=== PATIENT | female | born 1995 | race Caucasian/White ===

== ENCOUNTER → 2019-10-16 11:59 | Outpatient (CLI) | payer OTHER, SELFPAY ==
[2019-10-16 12:37] LABS: Basophils % 0.3 % (0.1-2.0); Eosinophils % 0.4 % (0.1-12.0); Hematocrit 42.7 % (37.0-47.0); Hemoglobin 14.1 g/dL (12.2-16.2); Lymphocytes # 1.6 K/mm3 (0.7-4.5); Lymphocytes % 21.2 % (10-50); Mean Corpuscular Hemoglobin 30.1 pg (27.0-31.2); Mean Platelet Volume 7.1 fl (7.4-10.4); Monocytes # 0.4 K/mm3 (0.1-1.0); Monocytes % 4.6 % (1.7-9.3); Neutrophils # 5.7 K/mm3 (1.8-7.8); Neutrophils % 73.6 % (37.0-80.0); Platelet Count 328 K/mm3 (142-424); Red Cell Distribution Width 12.3 % (11.5-17.5); White Blood Count 7.7 K/mm3 (4.8-10.8)
[2019-10-16 13:33] LABS: Triiodothryronine (T3) Uptake 35 % (23.5-40.5)
[2019-10-16 13:34] LABS: Free Thyroxine Index 3.2 ug/dL (5.93-13.13)
[2019-10-16 13:48] LABS: Thyroid Stimulating Hormone 1.13 uIU/mL (0.465-4.68)
== END ==
PROVIDERS: Visit Provider Nurse Practitioner Obstetrics & Gynecology
DX: R53.83 Other fatigue (principal); N93.9 Abnormal uterine and vaginal bleeding, unspecified
CPT/HCPCS: 36415; 84436; 84443; 84479; 85025

== ENCOUNTER → 2019-11-17 09:17 | Outpatient (CLI) | payer OTHER, SELFPAY ==
--- NOTE | 2019-11-17 09:17 | US_ITS ---
PROCEDURE: US TRANSVAGINAL CLINICAL INDICATION: DUB COMPARISON: No exams were available for comparison FINDINGS: UTERUS: 7.0 x 3.5x 4.3 centimeters with a combined endometrial thickness of 3.4mm. There is no myometrial lesion. There is a small amount of endocervical fluid possibly representing hemorrhage. There is a somewhat heterogeneous appearance of the cervix. Inflammation of the cervix or less likely ill-defined cervical neoplasm could cause this appearance. Correlation with SUPER[employer]OR [employer]IP[employer] exam and Pap smear is recommended. LEFT OVARY: [id number] with a volume of 2.7ml. RIGHT OVARY: 2cmx [id number] with a volume of 1.6ml. No abnormal pelvic mass or fluid collection is apparent. IMPRESSION: Somewhat heterogeneous appearance of the cervix with endocervical fluid. Inflammation of the cervix and/or infiltrative neoplasm could give this appearance. Correlation with SU[employer]IP[employer] exam and Pap smear is recommended. Normal endometrial thickness. Dictated by: Den Webster 11/17/2019 12:18 Electronically signed by Den Webster in [place] 11/17/2019 12:18
== END ==
PROVIDERS: Visit Provider Nurse Practitioner Obstetrics & Gynecology
DX: R10.2 Pelvic and perineal pain (principal)
CPT/HCPCS: 76830

== ENCOUNTER 2020-03-29 00:09 | Emergency (ER) | payer OTHER, SELFPAY ==
[2020-03-29 00:22] VITALS: BP 141/91; PULSE 97; RESP 16; TEMP 37; O2SAT 100; BMI 24.0
[2020-03-29 00:30] VITALS: BP 145/92; PULSE 93; RESP 17; O2SAT 100
[2020-03-29 00:44] LABS: Microscopic, Urine URINE MICROSCOPIC (MICROSCOPIC)
[2020-03-29 00:47] LABS: Bilirubin,Urine Negative (Negative); Blood, Urine 3+ (Negative); Glucose,Urine (UA) Negative (Negative); Ketones,Urine Negative (Negative); Leukocyte Esterase,Urine Negative (Negative); Nitrate,Urine Negative (Negative); Protein,Urine TRACE (Negative); Specific Gravity, Urine >= 1.030 (1.005-1.030); Urobilinogen,Urine 0.2 EU/dl (0.2)
[2020-03-29 00:48] LABS: Appearance,Urine Slightly Cloudy (Clear); Color,Urine Dark Yellow (Yellow)
[2020-03-29 00:48] LABS: Basophils # 0.1 K/mm3 (0-0.2); Basophils % 0.4 % (0.1-2.0); Eosinophils # 0.1 K/mm3 (0.0-0.4); Eosinophils % 0.4 % (0.1-12.0); Hematocrit 39.6 % (37.0-47.0); Hemoglobin 13.7 g/dL (12.2-16.2); Lymphocytes # 3.7 K/mm3 (0.7-4.5); Lymphocytes % 33.3 % (10-50); Mean Corpuscular HGB Conc 34.6 g/dL (31.8-35.4); Mean Corpuscular Volume 89.4 fl (81-99); Mean Platelet Volume 6.8 fl (7.4-10.4); Monocytes # 0.7 K/mm3 (0.1-1.0); Monocytes % 6.2 % (1.7-9.3); Neutrophils # 6.6 K/mm3 (1.8-7.8); Neutrophils % 59.6 % (37.0-80.0); Platelet Count 308 K/mm3 (142-424); Red Blood Count 4.43 M/mm3 (4.20-5.40); Red Cell Distribution Width 12.4 % (11.5-17.5); White Blood Count 11.1 K/mm3 (4.8-10.8)
[2020-03-29 00:49] LABS: Urine Pregnancy, HCG Qual. Negative (Negative)
[2020-03-29 00:51] LABS: Alanine Aminotransferase 12 U/L (12-78); Albumin Level 4.3 g/dl (3.5-5.0); Albumin/Globulin Ratio 1.6 (1.1-1.8); Alkaline Phosphatase 67 U/L (38-126); Amylase 76 U/L (30-110); Aspartate Amino Transferase 25 U/L (14-36); Bilirubin,Total 0.5 mg/dl (0.2-1.3); Blood Urea Nitrogen 11 mg/dl (7-17); Calcium 9.5 mg/dl (8.4-10.2); Carbon Dioxide 27 mmol/L (22.0-30.0); Chloride 102 mmol/L (98-107); Creatinine Clearance Estimated 88 mL/min (50-200); Estimated Glomerular Filt Rate 78 ml/min (>60); GFR (African American) 94 ML/MIN (>60); Globulin 2.7 g/dL (1.3-3.2); Glucose 98 mg/dl (74-100); Lipase 64 U/L (23-300); Sodium 138 mmol/L (136-145)
--- NOTE | 2020-03-29 00:53 | CT_ITS ---
PROCEDURE: CT ABDOMEN PELVIS WO CON CLINICAL INDICATION: right flank pain Right lower quadrant pain, UTI, right flank pain COMPARISON: CT CT ABDOMEN PELVIS WO CON from 06/06/2019 TECHNIQUE: Axial images obtained with sagittal and coronal reformats. All CT scans at the facility use one or more dose reduction, viz: automated exposure control, ma/kV adjustment per patient size (including targeted exams where dose is matched to indication, i.e. head), or iterative reconstruction technique. FINDINGS: LOWER THORAX: No acute finding ABDOMEN & PELVIS: The liver, spleen, adrenal glands, and pancreas have an unremarkable appearance. There is mild right hydronephrosis and hydroureter. Small stones are in both kidneys measuring up to 3 mm in the upper pole on the right and 2 mm in the lower pole on the left. There is a 2 mm right ureterovesical junction stone. No intestinal obstruction or free air. No evidence of appendicitis. The uterus is anteverted and canted toward the right. No acute bony findings. IMPRESSION: 1. Mild right hydronephrosis and hydroureter secondary to 2 mm right ureterovesical junction stone. 2. Bilateral nephrolithiasis Dictated b Dario Alex MD 03/29/2020 05:47 Dario Alex MD in [place] 03/29/2020 05:47
[2020-03-29 01:00] VITALS: BP 135/84; PULSE 74; RESP 18; O2SAT 99
[2020-03-29 01:06] LABS: Bacteria,Urine 1+ /lpf; Mucus,Urine 1+ /lpf; RBC,Urine TNTC #/hpf (0-3)
[2020-03-29 01:08] LABS: C-Reactive Protein 2.4 mg/L (0-4)
[2020-03-29 01:14] LABS: Erythrocyte Sedimentation Rate 12 mm/hr (0-20)
[2020-03-29 01:37] LABS: Anion Gap 12.6 mEq/L (5-15); Potassium 3.6 mmoL/L (3.5-5.1)
--- NOTE | 2020-03-29 01:43 | HMH.EDGENADL ---
ED Disposition Clinical Impression: Renal colic on right side Disposition: Home, Self-Care Condition on Discharge: Good Instructions: DI for Kidney Stones Additional Instructions: fluids and call dr chamberlain this am Prescriptions: Tamsulosin HCl [Flomax 0.4mg capsule] 0.4 mg PO HS #10 cap Transmission Status: Pending to [id number] Referrals: PCP,No [Primary Care Provider] - Aureliano Chamberlain MD [Staff Physician] - - Critical Care Critical Care Time: No Attestation: On 03/29/20, the high probability of a clinically significant, sudden or life threatening deterioration of the following system(s) required my full and direct attention, intervention and personal management. The time I documented below is in addition to time spent performing reported procedures but includes the following listed in this critical care notation. Medical Decision Making - Medical Records Medical records reviewed: Yes: I reviewed the patient's medical records. - Juarez Inquiry Pt receiving controlled substance: No Vital Signs: 03/29/20 00:22 03/29/20 00:30 03/29/20 01:00 Temperature 98.6 F Temperature Source Oral Pulse Rate [Right] 97 H 93 H 74 Respiratory Rate 16 17 18 Blood Pressure [Right Arm] 141/91 H 145/92 H 135/84 Blood Pressure Mean [Right Arm] 107 109 101 Blood Pressure Source [Right Arm] Automatic Cuff Automatic Cuff Automatic Cuff Blood Pressure Position [Right Arm] Sitting Supine Supine 02 Sat by Pulse Oximetry 100 100 99 Oxygen Delivery Method Room Air Room Air Room Air - Lab Data Lab results reviewed: Yes: I reviewed the patient's lab results. Lab Results 03/29/20 00:25: Urine Color Dark yellow, Urine Appearance Slightly cloudy, Urine pH 6.0, Ur Specific [place] >= 1.030, Urine Protein Trace, Urine Glucose (UA) Negative, Urine Ketones Negative, Urine Blood 3+, Urine Nitrate Negative, Urine Bilirubin Negative, Urine Urobilinogen 0.2, Ur Leukocyte Esterase Negative, Urine RBC Tntc, Urine WBC 3-5, Ur Squamous Epith Cells 5-10, Urine Bacteria 1+, Urine Mucus 1+ 03/29/20 00:25: Urine HCG, Qual Negative 03/29/20 00:30: WBC 11.1 H, RBC 4.43, Hgb 13.7, Hct 39.6, MCV 89.4, MCH 31.0, MCHC 34.6, RDW 12.4, Plt Count 308, MPV 6.8 L, Neut % (Auto) 59.6, Lymph % (Auto) 33.3, Iroquois % (Auto) 6.2, Eos % (Auto) 0.4, Baso % (Auto) 0.4, Neut # (Auto) 6.6, Lymph # (Auto) 3.7, [place]quois # (Auto) 0.7, Eos # (Auto) 0.1, Baso # (Auto) 0.1, ESR 12 03/29/20 00:30: Sodium 138, Potassium 3.6, Chloride 102, Carbon Dioxide 27, Anion Gap 12.6, BUN 11, Creatinine 0.90, Estimated Creat Clear 88, Estimated GFR 78, Est GFR ( Amer) 94, Glucose 98, Calcium 9.5, Total Bilirubin 0.5, AST 25, ALT 12, Alkaline Phosphatase 67, C-Reactive Protein 2.4, Total Protein 7.0, Albumin 4.3, Globulin 2.7, Albumin/Globulin Ratio 1.6, Amylase 76, Lipase 64 Result diagrams: 03/29/20 00:30 03/29/20 00:30 Orders (Tests/Meds): ED MEDICATIONS Generic Name Dose Route Start Last Admin Trade Name Freq PRN Reason Stop Dose Admin Sodium Chloride 1,000 mls @ 999 mls/hr 03/29/20 00:45 03/29/20 00:40 Sod Chlor 0.9% 1000ml Bag IV 03/29/20 01:45 999 mls/hr .Q1H1M DHEERAJ Administration Sodium Chloride 8 ml 03/29/20 00:34 Sodium Chloride 0.9% 10ml Vial IV 04/28/20 00:33 NEEDED PRN dilute pepcid Discontinued Medications Generic Name Dose Route Start Last Admin Trade Name Freq PRN Reason Stop Dose Admin Famotidine 20 mg 03/29/20 00:34 03/29/20 00:40 Pepcid 20mg/2ml Vial IV 03/29/20 00:35 20 mg ONCE ONE Administration Ketorolac Tromethamine 30 mg 03/29/20 00:34 03/29/20 00:40 Toradol 30mg/Ml Vial IV 03/29/20 00:35 30 mg ONCE ONE Administration Metoclopramide HCl 10 mg 03/29/20 00:34 03/29/20 00:40 Reglan 10mg/2ml Vial IVP 03/29/20 00:35 10 mg ONCE ONE Administration Ondansetron HCl 4 mg 03/29/20 00:34 03/29/20 00:40 Zofran 4mg/2ml Vial IV 03/29/20 00:35 4 mg ONCE ONE Administ
[2020-03-29 02:13] VITALS: BP 134/78; PULSE 76; RESP 16; TEMP 37; O2SAT 99
== END 2020-03-29 02:16 | disposition home or self-care (01) ==
PROVIDERS: Emergency Provider Emergency Medicine
DX: N23 Unspecified renal colic (principal); Z87.442 Personal history of urinary calculi; F17.210 Nicotine dependence, cigarettes, uncomplicated
CPT/HCPCS: 74176; 80053; 81001; 81025; 82150; 83690; 85025; 85651; 86140; 96365; 96375; 99284; J2405

== ENCOUNTER 2020-05-25 13:27 | Emergency (ER) | payer OTHER, SELFPAY ==
[2020-05-25 13:45] VITALS: BP 133/85; PULSE 95; RESP 21; TEMP 36.8; O2SAT 100; BMI 23.8
--- NOTE | 2020-05-25 13:59 | HMH.EDUTC ---
[facility] [place] Clinical Impression: URI (upper respiratory infection) Qualifiers: URI type: unspecified viral URI Qualified Code(s): J06.9 - Acute upper respiratory infection, unspecified Disposition: Home, Self-Care Condition on Discharge: Good Instructions: DI for Viral Upper Respiratory Infection -- Adult Additional Instructions: No sign of a bacterial infection. Likely viral. Viruses can take 7-14 days to run their course. Nasal saline and bulb syringe or nose Tiesha to remove nasal drainage to help with nasal congestion. Hard to eat, drink, sleep with nasal congestion so important to keep this cleaned out. Monitor temp. Tylenol or Motrin as needed for pain or fever Encourage fluids, water, Gatorade, Powerade, Pedialyte if /toddler/child Warm salt water gargles Warm fluids Sore throat lozenges Sleep elevated Humidifier/vaporizer Your covid swab was sent. Be sure you follow-up in 2-3 days if no improvement so we can review the results and treat if necessary if you do not have a primary care, I recommend to get 1 but in the meantime, call for results. self isolate until covid test is neg Follow-up immediately for new or worsening symptoms or no noticeable improvement over the next 48-72 hours. Prescriptions: Fluticasone Propionate [Flonase 50mcg nasal spray 16gm] 1 spr NS DAILY 14 Days #1 bottle Prescription Printed Referrals: PCPPrisca [Primary Care Provider] - Time of Disposition: 14:24 Medical Decision Making - Juarez Inquiry Pt receiving controlled substance: No Vital Signs: 05/25/20 13:45 Temperature 98.2 F Temperature Source Oral Pulse Rate [Right Brachial] 95 H Respiratory Rate 21 Blood Pressure [Right Arm] 133/85 Blood Pressure Mean [Right Arm] 101 Blood Pressure Source [Right Arm] Automatic Cuff Blood Pressure Position [Right Arm] Sitting 02 Sat by Pulse Oximetry 100 Oxygen Delivery Method Room Air Orders (Tests/Meds): ORDERS Category Date Time Status Covid-19 Nasal PCR ([facility]) Routine Lab 05/25/20 13:42 [place] [facility] [place] - General Chief complaint: [facility] Stated complaint: runny nose cough body aches Time Seen by Provider: 05/25/20 13:59 Mode of Arrival: Ambulatory Source of Information: Patient Limitations: No Limitations Description of Symptoms (Recalled from Triage Doc. by RN): PATIENT C/O OCCASIONAL SHORTNESS OF AIR, COUGH, AND RUNNY NOSE SINCE WEDNESDAY. SHE STATES SHE ATTENDED A 2 WEEKS AGO, AND AFTERWARD SEVERAL PEOPLE THAT WERE THERE HAVE BRONCHITIS HEENT Symptoms (Recalled from RN notes): Yes Resp Symptoms (Recalled from RN notes): Yes Skin Symptoms (Recalled from RN notes): No MS Symptoms (Recalled from RN notes): No Functional Status (Recalled from RN notes): WNL - History of Present Illness Provider Complaint: 25 yr old female presents for sore throat, nasal congestion, headache, dizzy at times, soa at times and fever since sat. Pt states she went to grandmothers and after a day she and numerous family members became ill with bronchitis. pt states she needs a note to go back to work. - Related Data Home Medications Medication Instructions Recorded Confirmed estradioL [Estradiol] 2 mg PO DAILYP PRN 05/25/20 05/25/20 Previous Rx's Medication Instructions Recorded Fluticasone Propionate [Flonase 1 spr NS DAILY 14 Days #1 bottle 05/25/20 50mcg nasal spray 16gm] Allergies Allergy/AdvReac Type Severity Reaction Status Date / Time No Known Allergies Allergy Verified 10/16/19 11:18 - Worker's Comp Is this a Worker's Comp case?: No [facility] History - Hepatitis A Screen Drug use history?: No High risk sexual behaviors?: No History of sexually transmitted infection?: No Currently employed?: No Childcare worker?: No Do you have indoor plumbing?: Yes Do you have electricity?: Yes Attestation statement:: This patient has been screened for Hepatitis A risk factors. I have reviewed the patient's past medica
[2020-05-25 14:23] VITALS: BP 133/85; PULSE 95; RESP 21; TEMP 36.8; O2SAT 100
== END 2020-05-25 14:25 | disposition home or self-care (01) ==
PROVIDERS: Emergency Provider Nurse Practitioner Family
DX: Z20.828 Contact with and (suspected) exposure to other viral communicable diseases (principal); J06.9 Acute upper respiratory infection, unspecified; F17.210 Nicotine dependence, cigarettes, uncomplicated
CPT/HCPCS: 99201; U0003

== ENCOUNTER 2021-10-05 08:02 | Emergency (ER) | payer OTHER, SELFPAY ==
[2021-10-05 08:09] VITALS: BP 136/68; PULSE 107; RESP 17; TEMP 37.2; O2SAT 99; BMI 24.5
--- NOTE | 2021-10-05 08:27 | HMH.EDGENADL ---
ED Disposition Clinical Impression: Cutaneous abscess Qualifiers: Site of cutaneous abscess: trunk Site of cutaneous abscess of trunk: perineum Qualified Code(s): L02.215 - Cutaneous abscess of perineum Disposition: Home, Self-Care Condition on Discharge: Fair Instructions: DI for Incision and Drainage of a Skin Abscess, DI for Skin Abscess Additional Instructions: Clindamycin as prescribed. Ibuprofen for pain. Additional instructions for ABSCESS: Day one and two: Remove the gauze bandage and shower the area, leaving the packing in place. Gently blot dry. Reapply gauze. Day three: Follow-up with primary care physician, clinic, or Urgent Treatment Center for packing removal and culture results. Return to the emergency department if increasing pain, swelling, redness, red streaks or fever greater than 101 degrees. Prescriptions: clindamycin HCL [Clindamycin HCl] 300 mg PO QID #28 cap Transmission Status: Received by [id number] Referrals: Provider,Referral, [Primary Care Provider] - - Critical Care Critical Care Time: No Attestation: On 10/05/21, the high probability of a clinically significant, sudden or life threatening deterioration of the following system(s) required my full and direct attention, intervention and personal management. The time I documented below is in addition to time spent performing reported procedures but includes the following listed in this critical care notation. Medical Decision Making - Juarez Inquiry Pt receiving controlled substance: No Vital Signs: 10/05/21 08:09 10/05/21 09:05 Temperature 98.9 F 98.9 F Temperature Source Oral Oral Pulse Rate 101 H Pulse Rate [Left Radial] 107 H Respiratory Rate 17 17 Blood Pressure 128/68 Blood Pressure [Right Arm] 136/68 Blood Pressure Mean [Right Arm] 90 02 Sat by Pulse Oximetry 99 Oxygen Delivery Method Room Air Room Air Orders (Tests/Meds): ED MEDICATIONS Discontinued Medications Generic Name Dose Route Start Last Admin Trade Name Freq PRN Reason Stop Dose Admin Acetaminophen 500 mg 10/05/21 08:58 10/05/21 08:59 Acetaminophen 500mg Tab PO 10/05/21 08:59 500 mg ONCE ONE Administration Clindamycin HCl 300 mg 10/05/21 08:51 10/05/21 08:53 Clindamycin 150mg Capsule PO 10/05/21 08:52 300 mg ONCE ONE Administration Ibuprofen 400 mg 10/05/21 08:58 10/05/21 09:00 Ibuprofen 400 Mg Tablet PO 10/05/21 08:59 400 mg ONCE ONE Administration ORDERS Category Date Time Status Wound Culture and Gram Stain Stat Micro 10/05/21 08:40 Received Medical Decision Narrative: Declines prescription pain medication, 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 General Adult HPI - General Chief complaint: Urogenital-Female Stated complaint: spot on vagina Time Seen by Provider: 10/05/21 08:27 Mode of Arrival: Ambulatory Limitations: No Limitations Description of Symptoms (Recalled from ER Triage Doc. by RN): pt to ed c/o vaginal pain. pt states she noticed a lesion on the inside of her vagina on the left side x1 week ago. pt states she called her gyno to try and make an appointment and they were unable to get her in. pt reports going to [facility] yesterday to be seen and states they would not do a vaginal exam. pt denies abd pain, and denies urinary symptoms. pt denies vaginal bleeding. - Related Data Home Medications Medication Instructions Recorded Confirmed buspirone 10 mg tablet 10 mg PO tab 12/16/20 12/16/20 citalopram 20 mg tablet 20 mg PO tab 12/16/20 12/16/20 guanfacine 2 mg tablet 2 mg PO tab 12/16/20 12/16/20 prazosin 2 mg capsule 2 mg PO cap 12/16/20 12/16/20 quetiapine 100 mg tablet 100 mg PO tab 12/16/20 12/16/20 sertraline 100 mg tablet 100 mg PO tab 12/16/20 12/16/20 Previous Rx's Medication Instructions Recorded Albuterol Sulfate [Albuterol 6.7 gm IH Q4-6H PRN 30 Days #1 05/25/20 Sulfate Hfa] hfa.aer.ad Fl
--- NOTE | 2021-10-05 08:53 | PC.NURSE ---
Med-Surg staff down here to take patient upstairs to her inpatient room.
[2021-10-05 09:05] VITALS: BP 128/68; PULSE 101; RESP 17; TEMP 37.2; O2SAT 99
== END 2021-10-05 09:06 | disposition home or self-care (01) ==
PROVIDERS: Emergency Provider Emergency Medicine
DX: L02.215 Cutaneous abscess of perineum (principal); F41.8 Other specified anxiety disorders; F17.210 Nicotine dependence, cigarettes, uncomplicated
CPT/HCPCS: 56405; 87070; 87077; 87186; 87205; 99283

== ENCOUNTER 2022-04-12 12:26 | Emergency (ER) | payer OTHER, SELFPAY ==
[2022-04-12 13:26] VITALS: BP 131/84; PULSE 101; RESP 15; TEMP 36.7; O2SAT 98; BMI 23.6
--- NOTE | 2022-04-12 13:26 | EXP.UTC ---
Discharge Plan Disposition Patient Disposition: Home, Self-Care Condition: Good Prescriptions Prescriptions: New ondansetron 4 mg Tablet,Disintegrating 4 mg PO Q8H PRN (Reason: Nausea) Qty: 20 0RF dicyclomine 10 mg capsule 10 mg PO BID PRN (Reason: cramping) Qty: 20 0RF No Action guanfacine 2 mg tablet 2 mg PO sertraline 100 mg tablet 100 mg PO prazosin 2 mg capsule 2 mg PO PRN doxycycline monohydrate 100 mg capsule 100 mg PO Vivitrol 380 mg suspension,extended rel recon IM naltrexone 50 mg tablet 50 mg PO quetiapine 50 mg tablet 50 mg PO fluticasone propionate 120 SPR/BOT bottle 1 spr NS DAILY 14 Days Qty: 1 0RF albuterol sulfate 8.5 GM HFA aerosol inhaler 6.7 gm IH Q4-6H PRN (Reason: Breakthru Mild Pain) 30 Days Qty: 1 0RF clindamycin HCl 300 MG capsule 300 mg PO QID Qty: 28 0RF Referrals Follow up/Referrals: Mason Ferreira [Primary Care Provider] - See instructions Activity Restrictions/Add. Instructions Additional Instructions/Restrictions: Drink plenty of fluids. Take tylenol for pain. Take the medications as directed. Follow up with your regular doctor. Follow up with GI specialist as discussed. GO TO THE ER FOR ANY WORSENING SYMPTOMS Return the stool sample to the outpatient lab with the order sheet we gave you as soon as you can collect it. Clinical Impressions Clinical Impression: Diarrhea, Abdominal cramping Instructions Patient Instructions: Ondansetron, Dicyclomine Discharge ED Provider: Albert Ball [facility] General Stated complaint: v/d stomach issues not eating for several days Time Seen by Provider: 04/12/22 13:26 History of Present Illness Provider Complaint: She states that she has had issues with n/v/d and abdominal cramping for the past 2 months. She has not been eating much because of this and she states that she has lost 15 pounds over the past 2 months. She denies any fever or chills. She denies sore throat, cough and urinary symptoms. Her pcp has saw her for this and is in the process of getting her an appointment with a gi specialist, but she states that she hasn't heard back from that. Related Data Home Medications Medication Instructions Recorded Confirmed guanfacine 2 mg tablet 2 mg PO 12/16/20 10/07/21 sertraline 100 mg tablet 100 mg PO 12/16/20 10/07/21 doxycycline monohydrate 100 mg 100 mg PO 10/07/21 10/07/21 capsule naltrexone 50 mg tablet 50 mg PO 10/07/21 10/07/21 naltrexone microspheres 380 mg ea IM 10/07/21 10/07/21 intramuscular suspension,extended release (Vivitrol) prazosin 2 mg capsule 2 mg PO PRN 10/07/21 10/07/21 quetiapine 50 mg tablet 50 mg PO 10/07/21 10/07/21 Previous Rx's Medication Instructions Recorded albuterol sulfate 90 mcg/actuation 6.7 gm IH Q4-6H PRN Breakthru Mild 05/25/20 aerosol inhaler Pain 30 days ##1 fluticasone propionate 50 1 spr NS DAILY 14 days ##1 05/25/20 mcg/actuation nasal spray,suspension clindamycin HCl 300 mg capsule 300 mg PO QID #28 caps 10/05/21 dicyclomine 10 mg capsule 10 mg PO BID PRN cramping #20 caps 04/12/22 ondansetron 4 mg disintegrating 4 mg PO Q8H PRN Nausea #20 tabs 04/12/22 tablet Allergies Allergy/AdvReac Type Severity Reaction Status Date / Time No Known Allergies Allergy Verified 04/12/22 13:28 PFSH PFS Social History Smoking Status: Current every day smoker tobacco type: cigarettes packs per day: 1 alcohol intake: never substance use type: marijuana current occupational status: other housing: house ROS Obtained: Yes All systems reviewed & no additional complaints except as documented Constitutional Constitutional: Denies chills and Denies fever(s) Integumentary/Breasts Skin/Breast: Denies redness, Denies rash and Denies wounds Neurologic Neurologic: Denies paresthesias Physical Exam General Gene
[2022-04-12 14:00] VITALS: BP 131/84; PULSE 101; RESP 15; TEMP 36.7
== END 2022-04-12 14:01 | disposition home or self-care (01) ==
PROVIDERS: Emergency Provider Nurse Practitioner Family; PCP Pediatrics
DX: R10.9 Unspecified abdominal pain (principal); R19.7 Diarrhea, unspecified; R11.0 Nausea; F17.210 Nicotine dependence, cigarettes, uncomplicated; Z79.51 Long term (current) use of inhaled steroids; Z79.890 Hormone replacement therapy; Z79.899 Other long term (current) drug therapy
CPT/HCPCS: 99213; G0463

== ENCOUNTER 2022-04-13 11:38 | Emergency (ER) | payer OTHER, SELFPAY ==
[2022-04-13 11:38] VITALS: BP 133/72; PULSE 94; RESP 18; TEMP 36.9; O2SAT 97; BMI 25.7
--- NOTE | 2022-04-13 11:42 | PC.NURSE ---
pt ambulatory to restroom without complications to provide UA.
--- NOTE | 2022-04-13 11:46 | PC.NURSE ---
UA sent to lab. pt hooked up to monitor and given a warm blanket. call light within reach
[2022-04-13 11:47] VITALS: BP 133/77; PULSE 80; O2SAT 96
[2022-04-13 11:55] LABS: Microscopic, Urine URINE MICROSCOPIC (MICROSCOPIC)
[2022-04-13 11:58] LABS: Appearance,Urine CLEAR (Clear); Blood, Urine 3+ (Negative); Color,Urine YELLOW (Yellow); Glucose,Urine (UA) Negative (Negative); Ketones,Urine 2+ (Negative); Leukocyte Esterase,Urine Negative (Negative); Nitrate,Urine Negative (Negative); Protein,Urine Negative (Negative); Specific Gravity, Urine >= 1.030 (1.005-1.030); Urobilinogen,Urine 0.2 EU/dl (0.2)
[2022-04-13 12:00] LABS: Urine Pregnancy, HCG Qual. Negative (Negative)
[2022-04-13 12:03] VITALS: BP 130/95; PULSE 87; O2SAT 97
[2022-04-13 12:04] LABS: Bilirubin,Urine 1+ (Negative)
--- NOTE | 2022-04-13 12:07 | PC.NURSE ---
pt requesting something to drink, advised pt we would need to keep pt npo until after ER MD sees her r/t her reporting abd pain. Pt verbalized understanding. Call light given to pt, offered pt an additional warm blanket, pt declined. Will continue to monitor
[2022-04-13 12:12] LABS: Basophils # 0.1 K/mm3 (0-0.2); Basophils % 1.1 % (0.1-2.0); Eosinophils # 0.1 K/mm3 (0.0-0.4); Eosinophils % 0.8 % (0.1-12.0); Hematocrit 44.3 % (37.0-47.0); Hemoglobin 14.2 g/dL (12.2-16.2); Lymphocytes # 2.1 K/mm3 (0.7-4.5); Lymphocytes % 26.2 % (10-50); Mean Corpuscular HGB Conc 32.2 g/dL (31.8-35.4); Mean Corpuscular Hemoglobin 29.8 pg (27.0-31.2); Mean Corpuscular Volume 92.5 fl (81-99); Mean Platelet Volume 7.1 fl (7.4-10.4); Monocytes # 0.5 K/mm3 (0.1-1.0); Monocytes % 5.9 % (1.7-9.3); Neutrophils # 5.3 K/mm3 (1.8-7.8); Neutrophils % 65.9 % (37.0-80.0); Platelet Count 351 K/mm3 (142-424); Red Blood Count 4.79 M/mm3 (4.20-5.40); Red Cell Distribution Width 12.6 % (11.5-17.5); White Blood Count 8.1 K/mm3 (4.8-10.8)
--- NOTE | 2022-04-13 12:15 | PC.NURSE ---
GURPREET LORENZO at for patient eval
[2022-04-13 12:16] LABS: Bacteria,Urine 1+ /lpf; RBC,Urine Occasional #/hpf (0-3)
--- NOTE | 2022-04-13 12:20 | CT_ITS ---
FINAL REPORT TECHNIQUE: Axial images through the abdomen and pelvis were performed without contrast.This study was performed with techniques to keep radiation doses as low as reasonably achievable, (ALARA). Individualized dose reduction techniques using automated exposure control or adjustment of mA and/or kV according to the patient's size were employed. CLINICAL HISTORY: RLQ abd pain x2 months and vomiting COMPARISON: 03/29/2020 FINDINGS: ABDOMEN: The lung bases are clear. The heart size is normal. Limited images of the liver are unremarkable. Probable stones or sludge are seen in the gallbladder. Consider right upper quadrant ultrasound for further evaluation. The spleen is normal. No adrenal mass is identified. The aorta is normal in caliber. There is no significant free fluid or adenopathy. There is bilateral common nonobstructing nephrolithiasis measuring up to 3 mm. There is no hydronephrosis. PELVIS: The appendix is normal. The urinary bladder is unremarkable. There is no significant free fluid or adenopathy. IMPRESSION: Bilateral, nonobstructing nephrolithiasis. Probable stones or sludge in the gallbladder. Consider right upper quadrant ultrasound for further evaluation. Reviewed, Interpreted and Dictated by Preston Griffin III, MD Transcribed by Isidra Rivas Authenticated and [facility]
--- NOTE | 2022-04-13 12:23 | PC.NURSE ---
Spoke with Dina in lab, they are aware of the ESR and CRP add ons
[2022-04-13 12:24] LABS: Alanine Aminotransferase 19 U/L (12-78); Albumin Level 4.3 g/dl (3.5-5.0); Albumin/Globulin Ratio 1.6 (1.1-1.8); Alkaline Phosphatase 70 U/L (38-126); Anion Gap 12.7 mEq/L (5-15); Aspartate Amino Transferase 22 U/L (14-36); Bilirubin,Total 0.7 mg/dl (0.2-1.3); Blood Urea Nitrogen 6 mg/dl (7-17); Calcium 9.8 mg/dl (8.4-10.2); Carbon Dioxide 24 mmol/L (22.0-30.0); Chloride 108 mmol/L (98-107); Creatinine Clearance Estimated 92 mL/min (50-200); Estimated Glomerular Filt Rate 68 ml/min (>60); GFR (African American) 82 ML/MIN (>60); Globulin 2.7 g/dL (1.3-3.2); Glucose 106 mg/dl (74-100); Potassium 3.7 mmoL/L (3.5-5.1); Sodium 141 mmol/L (136-145)
--- NOTE | 2022-04-13 12:26 | PC.NURSE ---
patient ambulatory to restroom without complications
--- NOTE | 2022-04-13 12:28 | HMH.EDGENADL ---
Discharge Plan Disposition Patient Disposition: Home, Self-Care Condition: Good Chief Complaint: Abdominal Pain Prescriptions Prescriptions: New famotidine [Pepcid] 20 mg tablet 20 mg PO BID 42 Days Qty: 84 0RF No Action guanfacine 2 mg tablet 2 mg PO sertraline 100 mg tablet 100 mg PO prazosin 2 mg capsule 2 mg PO PRN doxycycline monohydrate 100 mg capsule 100 mg PO Vivitrol 380 mg suspension,extended rel recon IM naltrexone 50 mg tablet 50 mg PO quetiapine 50 mg tablet 50 mg PO fluticasone propionate 120 SPR/BOT bottle 1 spr NS DAILY 14 Days Qty: 1 0RF albuterol sulfate 8.5 GM HFA aerosol inhaler 6.7 gm IH Q4-6H PRN (Reason: Breakthru Mild Pain) 30 Days Qty: 1 0RF clindamycin HCl 300 MG capsule 300 mg PO QID Qty: 28 0RF ondansetron 4 mg Tablet,Disintegrating 4 mg PO Q8H PRN (Reason: Nausea) Qty: 20 0RF dicyclomine 10 mg capsule 10 mg PO BID PRN (Reason: cramping) Qty: 20 0RF Referrals Follow up/Referrals: Preston Carter MD [Staff Physician] - 04/23/22 9:30 am (asif villavicencio) Mason Ferreira [Primary Care Provider] - See instructions Activity Restrictions/Add. Instructions Additional Instructions/Restrictions: Follow-up with outpatient surgery, they will call you to schedule an appointment to fit into your schedule in the next week. If you have any other concerning signs or symptoms, return to the emergency department for further evaluation. Clinical Impressions Clinical Impression: Abdominal pain Instructions Patient Instructions: DI for Acute Abdominal Pain Discharge ED Provider: Herve Mederos General Adult HPI General Chief complaint: Abdominal Pain Stated complaint: Stomach pain, vomitting, diarreah Time Seen by Provider: 04/13/22 12:00 Mode of Arrival: Ambulatory Source of Information: Patient Limitations: No Limitations Description of Symptoms (Recalled from ER Triage Doc. by RN): c/o upper abdomen pain that goes up the middle of her chest. STates she cant eat anything for approx 2 months with a weight loss of 15-20 pds. States she is nauseated all the time with the last few days she has been vomiting. pt states she does not want any narcotics due to her recovery. History of Present Illness HPI narrative: This is a 27-year-old female with history of anxiety who is presenting with nausea, vomiting, diarrhea. Patient states that she has had diarrhea for the past 2 months, intermittently bloody. Since that time, she has also developed vomiting over the past 2 days, nonbilious, nonbloody. She has had an associated 15 pound weight loss over the last 2 months, which is unintended. She went to her primary care provider who stated that it may be her colon, so she came to the ED for further evaluation. Patient says that she has 7 out of 10, cramping/sharp abdominal pain that starts in her left and right lower quadrants, does not radiate. Denies hematuria, dysuria, fevers, chills, midline spinal tenderness, abnormal vaginal discharge, , chest pain, shortness of breath, or any other concerning history. Related Data Home Medications Medication Instructions Recorded Confirmed guanfacine 2 mg tablet 2 mg PO 12/16/20 10/07/21 sertraline 100 mg tablet 100 mg PO 12/16/20 10/07/21 doxycycline monohydrate 100 mg 100 mg PO 10/07/21 10/07/21 capsule naltrexone 50 mg tablet 50 mg PO 10/07/21 10/07/21 naltrexone microspheres 380 mg ea IM 10/07/21 10/07/21 intramuscular suspension,extended release (Vivitrol) prazosin 2 mg capsule 2 mg PO PRN 10/07/21 10/07/21 quetiapine 50 mg tablet 50 mg PO 10/07/21 10/07/21 Previous Rx's Medication Instructions Recorded albuterol sulfate 90 mcg/actuation 6.7 gm IH Q4-6H PRN Breakthru Mild 05/25/20 aerosol inhaler Pain 30 days ##1 fluticasone propionate 50 1 spr NS DAILY 14 days ##1 05/25/20 mcg/actuation nasal spray,suspension clindamycin HCl 300 mg capsule
[2022-04-13 12:40] VITALS: BP 117/90; PULSE 68; O2SAT 99
[2022-04-13 12:42] LABS: C-Reactive Protein 0.6 mg/L (0-4)
[2022-04-13 12:55] LABS: Erythrocyte Sedimentation Rate 7 mm/hr (0-20)
--- NOTE | 2022-04-13 13:44 | US_ITS ---
FINAL REPORT CLINICAL HISTORY: vomiting, right abdominal pain-- pt had ct today COMPARISON: CT from the same day FINDINGS: Sonographic images of the right upper quadrant were obtained. The pancreas is partially obscured.The liver has an unremarkable appearance. There is a small amount of sludge in the gallbladder without well-defined gallstones. There is no evidence of biliary ductal dilatation.The common duct measures 2 mm. Limited images of the right kidney are unremarkable. IMPRESSION: Small amount of sludge in the gallbladder. Reviewed, Interpreted and Dictated by Preston Griffin III, MD Transcribed by Guero Buchanan Authenticated and [facility]
--- NOTE | 2022-04-13 14:01 | PC.NURSE ---
pt to radiology via wc with hazardous waste material technician
--- NOTE | 2022-04-13 14:37 | PC.NURSE ---
pt returned from US via wc with batch room technician
--- NOTE | 2022-04-13 15:01 | PC.NURSE ---
Contacted General Surgery office and spoke with BJ to have Dr. Carter call ER back
--- NOTE | 2022-04-13 15:06 | PC.NURSE ---
GURPREET LORENZO speaking with Dr. Carter at this time.
--- NOTE | 2022-04-13 15:16 | PC.NURSE ---
ER MD at speaking with patient regarding update on POC/results.
[2022-04-13 15:31] VITALS: BP 138/83; PULSE 70; RESP 16; TEMP 36.9; O2SAT 99
== END 2022-04-13 15:31 | disposition home or self-care (01) ==
PROVIDERS: Emergency Provider Emergency Medicine; PCP Pediatrics
DX: K80.20 Calculus of gallbladder without cholecystitis without obstruction (principal); N20.0 Calculus of kidney
CPT/HCPCS: 74176; 76705; 80053; 81001; 81025; 83605; 85025; 85651; 86140; 96361; 96374; 99285; J2405

== ENCOUNTER 2022-06-03 17:11 | Emergency (ER) | payer OTHER, SELFPAY ==
[2022-06-03 17:13] VITALS: BP 130/96; PULSE 104; RESP 19; TEMP 37.1; O2SAT 97; BMI 22.6
[2022-06-03 17:39] VITALS: BMI 22.6
--- NOTE | 2022-06-03 17:41 | HMH.EDGENADL ---
Discharge Plan Disposition Patient Disposition: Home, Self-Care Condition: Good Prescriptions Prescriptions: New sulfamethoxazole-trimethoprim 800-160 mg tablet 1 tab PO BID 10 Days Qty: 20 0RF No Action guanfacine 2 mg tablet 2 mg PO sertraline 100 mg tablet 100 mg PO prazosin 2 mg capsule 2 mg PO PRN doxycycline monohydrate 100 mg capsule 100 mg PO Vivitrol 380 mg suspension,extended rel recon IM naltrexone 50 mg tablet 50 mg PO quetiapine 50 mg tablet 50 mg PO estradiol [Estrace] 2 mg tablet 2 mg PO DAILY Qty: 30 3RF chlorhexidine gluconate [Hibiclens] 4 % liquid 1 applic topical Q5M Qty: 946 1RF fluticasone propionate 120 SPR/BOT bottle 1 spr NS DAILY 14 Days Qty: 1 0RF albuterol sulfate 8.5 GM HFA aerosol inhaler 6.7 gm IH Q4-6H PRN (Reason: Breakthru Mild Pain) 30 Days Qty: 1 0RF clindamycin HCl 300 MG capsule 300 mg PO QID Qty: 28 0RF ondansetron 4 mg Tablet,Disintegrating 4 mg PO Q8H PRN (Reason: Nausea) Qty: 20 0RF dicyclomine 10 mg capsule 10 mg PO BID PRN (Reason: cramping) Qty: 20 0RF famotidine [Pepcid] 20 mg tablet 20 mg PO BID 42 Days Qty: 84 0RF Referrals Follow up/Referrals: Provider,Referral, MD [Primary Care Provider] - See instructions Activity Restrictions/Add. Instructions Additional Instructions/Restrictions: You were evaluated in the emergency department today. Please keep the area clean and dry. Do not submerge in any water. Apply warm compresses. distribution center supervisor your prescription for antibiotics and take the full course as prescribed. Follow-up with your primary care provider over the next 48 hours for a wound recheck. Return to the emergency department for any new or worsening symptoms. Clinical Impressions Clinical Impression: Abscess of Bartholin's gland Stand Alone Forms Stand Alone Forms: Work/School Release Instructions Patient Instructions: Boil, DI for Skin Abscess, DI for Incision and Drainage, DI for Bartholin Gland Cyst Discharge ED Provider: Karla Armstrong General Adult HPI General Chief complaint: Skin/Abscess/Foreign Body Stated complaint: boil on inside of vagina Time Seen by Provider: 06/03/22 17:14 History of Present Illness HPI narrative: This patient is a 27-year-old female with history of Bartholin duct abscess that she had drained in September presented to the emergency department for evaluation of swelling to the left labia. She states that she was noted a few days ago. She states that it is progressively worsened since, and she has a lot of vaginal pain, redness, and swelling. She denies any fevers, chills, nausea, vomiting, or other concerns. Touching the area is sensitive. Nothing seems to make her symptoms better. She denies any other concerns, such as dysuria or abnormal vaginal discharge. No concern for sexually transmitted infection. Related Data Home Medications Medication Instructions Recorded Confirmed guanfacine 2 mg tablet 2 mg PO 12/16/20 10/07/21 sertraline 100 mg tablet 100 mg PO 12/16/20 10/07/21 doxycycline monohydrate 100 mg 100 mg PO 10/07/21 10/07/21 capsule naltrexone 50 mg tablet 50 mg PO 10/07/21 10/07/21 naltrexone microspheres 380 mg ea IM 10/07/21 10/07/21 intramuscular suspension,extended release (Vivitrol) prazosin 2 mg capsule 2 mg PO PRN 10/07/21 10/07/21 quetiapine 50 mg tablet 50 mg PO 10/07/21 10/07/21 Previous Rx's Medication Instructions Recorded albuterol sulfate 90 mcg/actuation 6.7 gm IH Q4-6H PRN Breakthru Mild 05/25/20 aerosol inhaler Pain 30 days ##1 fluticasone propionate 50 1 spr NS DAILY 14 days ##1 05/25/20 mcg/actuation nasal spray,suspension clindamycin HCl 300 mg capsule 300 mg PO QID #28 caps 10/05/21 dicyclomine 10 mg capsule 10 mg PO BID PRN cramping #20 caps 04/12/22 ondansetron 4 mg disintegrating 4 mg PO Q8H PRN Nausea #20 tabs 04/12/22 tablet famotidine 20 mg table
[2022-06-03 19:15] VITALS: BP 127/83; PULSE 98; RESP 18; TEMP 37.1; O2SAT 98
== END 2022-06-03 19:17 | disposition home or self-care (01) ==
PROVIDERS: Emergency Provider Emergency Medicine
DX: N75.1 Abscess of Bartholin's gland (principal); Z79.899 Other long term (current) drug therapy
CPT/HCPCS: 56420; 99283

== ENCOUNTER 2022-08-30 12:01 | Emergency (ER) | payer OTHER, SELFPAY ==
[2022-08-30] VITALS (9 sets, daily range): BP systolic 128–146; BP diastolic 94–102; PULSE 77–96; RESP 15–16; TEMP 36.6–36.7; O2SAT 97–100; BMI 22.1
--- NOTE | 2022-08-30 12:39 | HMH.EDGENADL ---
Discharge Plan Disposition Patient Disposition: Home, Self-Care Condition: Good Prescriptions Prescriptions: New promethazine 25 mg tablet 25 mg PO Q6H PRN (Reason: nausea) Qty: 10 0RF No Action guanfacine 2 mg tablet 2 mg PO sertraline 100 mg tablet 100 mg PO prazosin 2 mg capsule 2 mg PO PRN doxycycline monohydrate 100 mg capsule 100 mg PO Vivitrol 380 mg suspension,extended rel recon IM naltrexone 50 mg tablet 50 mg PO quetiapine 50 mg tablet 50 mg PO estradiol [Estrace] 2 mg tablet 2 mg PO DAILY Qty: 30 3RF chlorhexidine gluconate [Hibiclens] 4 % liquid 1 applic topical Q5M Qty: 946 1RF fluticasone propionate 120 SPR/BOT bottle 1 spr NS DAILY 14 Days Qty: 1 0RF albuterol sulfate 8.5 GM HFA aerosol inhaler 6.7 gm IH Q4-6H PRN (Reason: Breakthru Mild Pain) 30 Days Qty: 1 0RF clindamycin HCl 300 MG capsule 300 mg PO QID Qty: 28 0RF ondansetron 4 mg Tablet,Disintegrating 4 mg PO Q8H PRN (Reason: Nausea) Qty: 20 0RF dicyclomine 10 mg capsule 10 mg PO BID PRN (Reason: cramping) Qty: 20 0RF famotidine [Pepcid] 20 mg tablet 20 mg PO BID 42 Days Qty: 84 0RF sulfamethoxazole-trimethoprim 800-160 mg tablet 1 tab PO BID 10 Days Qty: 20 0RF Referrals Follow up/Referrals: Hanane Rahman [Primary Care Provider] - See instructions Activity Restrictions/Add. Instructions Additional Instructions/Restrictions: Call your primary care provider to arrange follow-up and discuss referral to tour consultant. Follow-up with your surgeon in [place], call for appointment. Phenergan as needed for nausea. Urine culture has been performed, results generally take 2 to 3 days. Follow-up the results of this test with your primary care provider within 2 to 3 days. Clinical Impressions Clinical Impression: Chronic abdominal pain, Chronic vomiting Instructions Patient Instructions: DI for Abdominal Pain-Adult, DI for Vomiting -- Adult Discharge ED Provider: Favian Loo Adult [facility] General Chief complaint: Nausea/Vomiting/Diarrhea Stated complaint: lower back to ribs pain,vomiting Time Seen by Provider: 08/30/22 12:30 Mode of Arrival: Ambulatory Source of Information: Patient Limitations: No Limitations Description of Symptoms (Recalled from ER Triage Doc. by RN): pt comes in with c/o lower back pain, vomitting and nausea ongoing for the past 4-5 months. pt was seen here 04/13 with abdominal scan to show gallbladder sludge. pt states symptoms have been ongoing since. pt states that she has been unable to follow up with anyone due to things going on in her life. History of Present Illness HPI narrative: Patient states that she has gallstones and is currently having an attack that is worse than the ones that she has been having for the past 4 to 5 months. She complains of generalized abdominal pain. She has vomiting. States last bowel movement is 5 days ago because she has nothing in her stomach. States that she has been having continued symptoms for 4 to 5 months and has been losing weight, going down from 160 to 117 pounds. She was seen in the emergency department here on 04/13/2022. She says she was told she had gallstones. She says that she saw a surgeon in [place] a couple of weeks later and they wanted to take her gallbladder out, but she has not had it done because she is afraid of the pain medication, because she is a former addict (also does not want any pain medication now). She has not followed up with her primary care doctor or any other physicians since then. Related Data Home Medications Medication Instructions Recorded Confirmed guanfacine 2 mg tablet 2 mg PO 12/16/20 10/07/21 sertraline 100 mg tablet 100 mg PO 12/16/20 10/07/21 doxycycline monohydrate 100 mg 100 mg PO 10/07/21 10/07/21 capsule naltrexone 50 mg tablet 50 mg PO 10/07/21 10/07/21 naltrexone microspheres 380 mg ea IM 02
[2022-08-30 12:44] LABS: Basophils # 0.1 K/mm3 (0-0.2); Basophils % 1.1 % (0.1-2.0); Eosinophils # 0.1 K/mm3 (0.0-0.4); Eosinophils % 1.2 % (0.1-12.0); Hematocrit 45.2 % (37.0-47.0); Hemoglobin 15.5 g/dL (12.2-16.2); Lymphocytes # 1.7 K/mm3 (0.7-4.5); Lymphocytes % 19.9 % (10-50); Mean Corpuscular HGB Conc 34.4 g/dL (31.8-35.4); Mean Corpuscular Hemoglobin 30.4 pg (27.0-31.2); Mean Corpuscular Volume 88.2 fl (81-99); Mean Platelet Volume 7.1 fl (7.4-10.4); Monocytes # 0.6 K/mm3 (0.1-1.0); Monocytes % 6.4 % (1.7-9.3); Neutrophils # 6.1 K/mm3 (1.8-7.8); Neutrophils % 71.3 % (37.0-80.0); Platelet Count 401 K/mm3 (142-424); Red Blood Count 5.12 M/mm3 (4.20-5.40); Red Cell Distribution Width 12.5 % (11.5-17.5); White Blood Count 8.6 K/mm3 (4.8-10.8)
[2022-08-30 12:48] LABS: Chloride 106 mmol/L (98-107); Potassium 3.6 mmoL/L (3.5-5.1); Sodium 143 mmol/L (136-145)
[2022-08-30 12:51] LABS: Alanine Aminotransferase 21 U/L (12-78); Albumin Level 4.8 g/dl (3.5-5.0); Albumin/Globulin Ratio 1.6 (1.1-1.8); Alkaline Phosphatase 72 U/L (38-126); Anion Gap 13.6 mEq/L (5-15); Aspartate Amino Transferase 25 U/L (14-36); Bilirubin,Total 0.6 mg/dl (0.2-1.3); Blood Urea Nitrogen 9 mg/dl (7-17); Calcium 9.7 mg/dl (8.4-10.2); Carbon Dioxide 27 mmol/L (22.0-30.0); Creatinine Clearance Estimated 80 mL/min (50-200); Estimated Glomerular Filt Rate 76 ml/min (>60); GFR (African American) 92 ML/MIN (>60); Glucose 110 mg/dl (74-100); Lipase 65 U/L (23-300); Total Protein,Serum 7.8 g/dl (6.3-8.2)
[2022-08-30 12:55] LABS: HCG Qualitative, Serum Negative (Negative)
[2022-08-30 13:10] LABS: Microscopic, Urine URINE MICROSCOPIC (MICROSCOPIC)
[2022-08-30 13:12] LABS: Appearance,Urine CLOUDY (Clear); Blood, Urine 3+ (Negative); Color,Urine DK YELLOW (Yellow); Glucose,Urine (UA) Negative (Negative); Ketones,Urine TRACE (Negative); Leukocyte Esterase,Urine Negative (Negative); Nitrate,Urine Negative (Negative); Protein,Urine 1+ (Negative); Specific Gravity, Urine >= 1.030 (1.005-1.030); Urobilinogen,Urine 0.2 EU/dl (0.2)
[2022-08-30 13:15] LABS: Bilirubin,Urine 1+ (Negative)
[2022-08-30 13:25] LABS: Bacteria,Urine 2+ /lpf; Calcium Oxalate Crystals,Urine 1+ /lpf; Mucus,Urine 2+ /lpf; Urine Pregnancy, HCG Qual. Negative (Negative)
--- NOTE | 2022-08-30 13:52 | CT_ITS ---
PROCEDURE INFORMATION: Exam: CT Abdomen And Pelvis With Contrast Exam date and time: 08/30/2022 2:08 PM Age: 27 years old Clinical indication: Abdominal pain; Generalized; Additional info: Abdo pain TECHNIQUE: Imaging protocol: Computed tomography of the abdomen and pelvis with contrast. Radiation optimization: All CT scans at this facility use at least one of these dose optimization techniques: automated exposure control; mA and/or kV adjustment per patient size (includes targeted exams where dose is matched to clinical indication); or iterative reconstruction. Contrast material: ISOVUE; Contrast volume: 75 ml; Contrast route: IV; COMPARISON: CT ABDOMEN PELVIS WO CON 04/13/2022 12:22 PM FINDINGS: Lungs: No consolidation, lung nodules, or pleural effusions. Liver: Normal. No mass. Gallbladder and bile ducts: Normal. No calcified stones. No ductal dilation. Pancreas: Normal. No ductal dilation. Spleen: Normal. No splenomegaly. Adrenal glands: Normal. No mass. Kidneys and ureters: Normal. No hydronephrosis, calcified stones, or masses. Stomach and bowel: Normal. No intestinal masses, bowel wall thickening, or abnormal dilatation. Appendix: No evidence of appendicitis. Intraperitoneal space: Trace of free fluid in the pelvis. Vasculature: No abdominal aortic aneurysm. No other significant abnormalities. Lymph nodes: No enlarged lymph nodes. Urinary bladder: No significant wall thickening. Reproductive: Anteverted uterus is appropriate in size and shape and has no myometrial masses. No adnexal masses. Bones/joints: No acute fracture or bone lesions. Soft tissues: No masses or other abnormalities. IMPRESSION: 1. No acute abnormalities in the abdomen and pelvis. No evidence of appendicitis. 2. Trace of free fluid in the pelvis is most likely physiologic.
--- NOTE | 2022-08-30 14:06 | PC.NURSE ---
pt gone to rad
[2022-08-30 15:53] LABS: Amphetamine/Metha Screen,Urine Negative ng/ml (<1000)
[2022-08-30 15:54] LABS: Barbiturates Screen,Urine Negative ng/ml (<200)
[2022-08-30 15:55] LABS: Benzodiazepines Screen,Urine Negative ng/ml (<200)
[2022-08-30 15:56] LABS: Cannabinoid Screen,Urine Positive ng/ml (<50); Cocaine Screen,Urine Negative ng/ml (<300)
[2022-08-30 15:57] LABS: Methadone Screen,Urine Negative ng/ml (<300); Opiate Screen,Urine Negative ng/ml (<300)
[2022-08-30 15:58] LABS: Phencyclidine Screen,Urine Negative ng/ml (<25)
== END 2022-08-30 15:43 | disposition home or self-care (01) ==
PROVIDERS: Emergency Provider Emergency Medicine; PCP Pediatrics
DX: R10.9 Unspecified abdominal pain (principal); G89.29 Other chronic pain; R11.2 Nausea with vomiting, unspecified; F17.210 Nicotine dependence, cigarettes, uncomplicated
CPT/HCPCS: 74177; 80053; 80305; 81001; 81025; 83690; 84703; 85025; 87086; 96361; 96374; 99285; J2405; Q9967

== ENCOUNTER 2023-04-08 07:28 | Emergency (ER) | payer OTHER, SELFPAY ==
[2023-04-08 07:29] VITALS: BP 131/72; PULSE 86; RESP 17; TEMP 36.7; O2SAT 99; BMI 23.2
--- NOTE | 2023-04-08 07:47 | PC.NURSE ---
UA sent to lab
[2023-04-08 07:50] LABS: Microscopic, Urine URINE MICROSCOPIC (MICROSCOPIC)
--- NOTE | 2023-04-08 07:51 | XR_ITS ---
FINAL REPORT CLINICAL HISTORY: chills, night sweats, weakness COMPARISON: 03/02/2019 FINDINGS: SINGLE-VIEW CHEST The heart size is normal. The mediastinum is normal. The lungs are clear. There is no pneumothorax. IMPRESSION: No acute cardiopulmonary process. Reviewed, Interpreted and Dictated by Rommel Caban MD Transcribed by Yamilet Cisse Authenticated and [facility]
[2023-04-08 07:56] LABS: Appearance,Urine CLEAR (Clear); Bilirubin,Urine Negative (Negative); Blood, Urine Negative (Negative); Color,Urine YELLOW (Yellow); Glucose,Urine (UA) Negative (Negative); Ketones,Urine Negative (Negative); Leukocyte Esterase,Urine 2+ (Negative); Nitrate,Urine Negative (Negative); Protein,Urine TRACE (Negative); Urobilinogen,Urine 0.2 EU/dl (0.2)
[2023-04-08 07:58] LABS: Urine Pregnancy, HCG Qual. Negative (Negative)
--- NOTE | 2023-04-08 07:59 | HMH.EDGENADL ---
Discharge Plan Disposition Patient Disposition: Home, Self-Care Condition: Good Prescriptions Prescriptions: New nitrofurantoin monohyd/m-cryst [Macrobid] 100 mg capsule 100 mg PO BID 5 Days Qty: 10 0RF Rx Instructions: must administer with a meal/food ondansetron 4 mg tablet,disintegrating 4 mg PO Q8H PRN (Reason: nausea and vomiting) 4 Days Qty: 12 0RF phenazopyridine [Pyridium] 200 mg tablet 200 mg PO Q8H PRN (Reason: pain) Qty: 14 0RF No Action guanfacine 2 mg tablet 2 mg PO HS mirtazapine 15 mg tablet 1 mg PO HS Patient Comments: TAKE 1 TABLET BY MOUTH AT BEDTIME NEEDED FOR SLEEP/ANXIETY/MOOD Vraylar 3 mg capsule 1 mg PO DAILY Patient Comments: TAKE 1 CAPSULE BY MOUTH ONCE DAILY Referrals Follow up/Referrals: Provider,Referral, MD [Primary Care Provider] - See instructions Activity Restrictions/Add. Instructions Additional Instructions/Restrictions: You were evaluated in the emergency department today. Please slate picker your prescriptions at the complete the full course of antibiotics at home as prescribed. Take Pyridium as needed for urinary pain. This may turn your urine orange. Take Zofran as needed for nausea and vomiting. Take Tylenol and ibuprofen at home as needed for pain otherwise. Follow-up with your primary care provider over the next 3 days for reassessment. Return to the emergency department for any new or worsening symptoms. Clinical Impressions Clinical Impression: UTI (urinary tract infection) Qualifiers: Urinary tract infection type: acute cystitis Hematuria presence: without hematuria Qualified Code(s): N30.00 - Acute cystitis without hematuria Stand Alone Forms Stand Alone Forms: Work/School Release Instructions Patient Instructions: DI for Urinary Tract Infection (UTI) Discharge ED Provider: Karla Armstrong General Adult HPI General Chief complaint: Urogenital-Female Stated complaint: runny nose, stomach pain, diarrhea, weak Time Seen by Provider: 04/08/23 07:32 Mode of Arrival: Family Vehicle Source of Information: Patient Limitations: No Limitations Description of Symptoms (Recalled from ER Triage Doc. by RN): Pt presents to the ER with multiple complaints. States she has had sinus congestion & runny nose. She has an occasional cough and has to clear her throat a lot . Denies any fever or SOA. States she has not been sleeping lately d/t the sinus issues as well as she can't get full and has been having bingeing episodes . Pt also states she has had 2-3 episodes of diarrhea daily for a few days. Reports nausea wo vomiting. She also reports her waistline can be tender on occasion. Pt reports she has not had a period for 2 mn and has a Nexplanon bar for control. History of Present Illness HPI narrative: This patient is a 28-year-old female with a history of mood disorder, asthma, allergic rhinitis, urethritis, and cholecystectomy in August with reports of chronic intermittent gastrointestinal symptoms since presenting to the emergency department for evaluation with concern for multiple complaints. She states that she has not felt like herself in about a week now. She states that she has a runny nose and has to clear her throat a lot. She also notes that she feels like she cannot get full and is having to eat a lot more than usual. She also states that she is urinating more frequently than usual and her urine smells funny. She denies any fevers, chills, chest pain, shortness of breath, abdominal pain, nausea, vomiting, recent changes in bowel movements dysuria, hematuria, abnormal vaginal discharge, or other concerns. On review of systems, she does admit to night sweats. She denies any concerns that she could be , as she has a Nexplanon implant. Related Data Home Medications Medication Instructions Recorded Confirmed guanfacine 2 mg tablet 2 mg PO HS sleep/mood 12/16/20 04/08/23 cariprazine 3 mg capsule (Marisel
[2023-04-08 08:00] VITALS: BP 119/76; PULSE 90; O2SAT 100
--- NOTE | 2023-04-08 08:10 | ECG_ITS ---
APPROVED REPORT Exam: Resting ECG HR:77 bpm ECG Measurements Heart Rate 77 AXES NH 133 P 60 QRSd 77 QRS 40 QT 365 T 43 QTc 397 Conclusion SINUS RHYTHM NORMAL ECG UNCONFIRMED REPORT Electronically signed by : Reese Perez MD 04/08/2023 16:39:18
[2023-04-08 08:19] LABS: Amorphous Sediment,Urine 2+ /lpf; WBC,Urine 20-50 #/hpf (0-3)
[2023-04-08 08:30] VITALS: BP 124/80; PULSE 80; O2SAT 96
[2023-04-08 08:30] LABS: Coronavirus 19, PCR Not Detected (NotDetected); Influenza A, PCR Not Detected (NotDetected); Influenza B, PCR Not Detected (NotDetected)
[2023-04-08 08:35] LABS: Basophils % 0.5 % (0.1-2.0); Eosinophils # 0.1 K/mm3 (0.0-0.4); Hematocrit 47.4 % (37.0-47.0); Hemoglobin 15.4 g/dL (12.2-16.2); Lymphocytes # 2.1 K/mm3 (0.7-4.5); Lymphocytes % 30.9 % (10-50); Mean Corpuscular HGB Conc 32.5 g/dL (31.8-35.4); Mean Corpuscular Hemoglobin 29.8 pg (27.0-31.2); Mean Corpuscular Volume 91.9 fl (81-99); Monocytes # 0.4 K/mm3 (0.1-1.0); Monocytes % 5.6 % (1.7-9.3); Neutrophils # 4.1 K/mm3 (1.8-7.8); Neutrophils % 61.9 % (37.0-80.0); Platelet Count 319 K/mm3 (142-424); Red Blood Count 5.15 M/mm3 (4.20-5.40); Red Cell Distribution Width 12.5 % (11.5-17.5); White Blood Count 6.7 K/mm3 (4.8-10.8)
[2023-04-08 08:42] LABS: Chloride 106 mmol/L (98-107); Sodium 141 mmol/L (136-145)
[2023-04-08 08:43] LABS: Potassium 3.9 mmoL/L (3.5-5.1)
[2023-04-08 08:45] LABS: Alanine Aminotransferase 21 U/L (12-78); Albumin Level 4.1 g/dl (3.5-5.0); Albumin/Globulin Ratio 1.3 (1.1-1.8); Alkaline Phosphatase 67 U/L (38-126); Anion Gap 11.9 mEq/L (5-15); Aspartate Amino Transferase 28 U/L (14-36); Bilirubin,Total 0.7 mg/dl (0.2-1.3); Blood Urea Nitrogen 11 mg/dl (7-17); Calcium 9.4 mg/dl (8.4-10.2); Carbon Dioxide 27 mmol/L (22.0-30.0); Creatinine Clearance Estimated 75 mL/min (50-200); Estimated Glomerular Filt Rate 67 ml/min (>60); GFR (African American) 81 ML/MIN (>60); Globulin 3.1 g/dL (1.3-3.2); Glucose 103 mg/dl (74-100); Total Protein,Serum 7.2 g/dl (6.3-8.2)
[2023-04-08 08:46] LABS: Magnesium 1.9 mg/dl (1.6-2.3)
[2023-04-08 09:00] VITALS: BP 131/90; PULSE 83; O2SAT 99
[2023-04-08 09:03] LABS: T4 (Thyroxine) 10.7 ug/dl (5.53-11.0)
[2023-04-08 09:16] LABS: Thyroid Stimulating Hormone 1.26 uIU/mL (0.465-4.68)
--- NOTE | 2023-04-08 09:28 | PC.NURSE ---
pt sitting in bed, no needs at this time
[2023-04-08 09:43] VITALS: BP 130/81; PULSE 80; RESP 18; TEMP 36.7; O2SAT 98
== END 2023-04-08 10:06 | disposition home or self-care (01) ==
PROVIDERS: Emergency Provider Emergency Medicine
DX: N39.0 Urinary tract infection, site not specified (principal); B96.29 Other Escherichia coli [E. coli] as the cause of diseases classified elsewhere; F17.210 Nicotine dependence, cigarettes, uncomplicated; F90.9 Attention-deficit hyperactivity disorder, unspecified type
CPT/HCPCS: 71045; 80053; 81001; 81025; 83735; 84436; 84443; 85025; 87086; 87088; 87186; 87636; 93005; 96360; 99284

== ENCOUNTER 2023-05-07 07:50 | Emergency (ER) | payer OTHER, SELFPAY ==
[2023-05-07 07:59] VITALS: BP 134/89; PULSE 98; RESP 16; TEMP 36.7; O2SAT 97; BMI 23.8
--- NOTE | 2023-05-07 08:00 | CT_ITS ---
FINAL REPORT TECHNIQUE: After the administration of oral and intravenous contrast, axial images were obtained through the abdomen and pelvis by computed tomography. The study was performed with techniques to keep radiation dose as low as reasonably achievable, (ALARA). Individual dose reduction techniques using automated exposure control or adjustment of mA and/or kV according to the patient's size were employed. CLINICAL HISTORY: rlq abd pain COMPARISON: 08/30/2022 FINDINGS: Abdomen: The lung bases are clear. The liver parenchyma is homogeneous. The gallbladder is not visualized. The spleen, pancreas, adrenals and kidneys appear unremarkable. The aorta is normal in caliber. There is no free fluid or adenopathy. Pelvis: The appendix is normal in appearance. The urinary bladder is unremarkable. There is no free fluid or adenopathy. There is prominent enhancement of the pelvic veins, which was also present on the prior CT examination, worrisome for pelvic venous congestion. The uterus is eccentric to the right. IMPRESSION: Prominent enhancement of the pelvic veins, also noted on the prior CT examination, worrisome for pelvic venous congestion. The uterus is eccentric to the right. Reviewed, Interpreted and Dictated by Rommel Caban MD Transcribed by Caro العلي Authenticated and [facility]
--- NOTE | 2023-05-07 08:01 | PC.NURSE ---
Dr. Faust at bedside at this time
--- NOTE | 2023-05-07 08:01 | HMH.EDGENADL ---
Discharge Plan Disposition Patient Disposition: Home, Self-Care Prescriptions Prescriptions: New nitrofurantoin monohyd/m-cryst 100 mg capsule 100 mg PO BID 5 Days Qty: 10 0RF Rx Instructions: must administer with a meal/food ondansetron 4 mg tablet,disintegrating 4 mg PO Q6H PRN (Reason: nausea and vomiting) 5 Days Qty: 20 0RF No Action guanfacine 2 mg tablet 2 mg PO HS mirtazapine 15 mg tablet 1 mg PO HS Patient Comments: TAKE 1 TABLET BY MOUTH AT BEDTIME NEEDED FOR SLEEP/ANXIETY/MOOD Vraylar 3 mg capsule 1 mg PO DAILY Patient Comments: TAKE 1 CAPSULE BY MOUTH ONCE DAILY nitrofurantoin monohyd/m-cryst [Macrobid] 100 mg capsule 100 mg PO BID 5 Days Qty: 10 0RF Rx Instructions: must administer with a meal/food ondansetron 4 mg tablet,disintegrating 4 mg PO Q8H PRN (Reason: nausea and vomiting) 4 Days Qty: 12 0RF phenazopyridine [Pyridium] 200 mg tablet 200 mg PO Q8H PRN (Reason: pain) Qty: 14 0RF Referrals Follow up/Referrals: Provider,Referral, MD [Primary Care Provider] - See instructions Activity Restrictions/Add. Instructions Additional Instructions/Restrictions: Return with any worsening symptoms. Clinical Impressions Clinical Impression: Nausea vomiting and diarrhea, Lower abdominal pain, UTI (urinary tract infection) Instructions Patient Instructions: DI for Acute Abdominal Pain Discharge ED Provider: Abdoul Faust General Adult HPI General Chief complaint: Abdominal Pain Stated complaint: vomiting diarrhea abd pain Time Seen by Provider: 05/07/23 07:55 History of Present Illness HPI narrative: Patient is a 28-year-old female here with 7 days of nausea vomiting diarrhea and 10 pound unintentional weight loss. States she had her gallbladder taken out 1 year ago and has symptoms similar to what she experienced prior to having her gallbladder removed. She intermittently has some nausea and vomiting but states this is out of proportion to what she normally has. No sick contacts that she is aware of. She has not been traveling outside the country no recent camping or animal exposure . She does not work in healthcare setting she has not been on antibiotics. No blood in her stool. Does states she has had foul-smelling urine but denies any dysuria urgency or frequency. Her vomiting has been nonbloody nonbilious as well. No chest pain shortness of breath fevers or chills. States she has pain in the lower abdomen. Related Data Home Medications Medication Instructions Recorded Confirmed guanfacine 2 mg tablet 2 mg PO HS sleep/mood 12/16/20 04/08/23 cariprazine 3 mg capsule (Vraylar) 1 mg PO DAILY mood 04/08/23 04/08/23 mirtazapine 15 mg tablet 1 mg PO HS sleep/mood 04/08/23 04/08/23 Previous Rx's Medication Instructions Recorded nitrofurantoin 100 mg PO BID 5 days #10 caps 04/08/23 monohydrate/macrocrystals 100 mg capsule (Macrobid) ondansetron 4 mg disintegrating 4 mg PO Q8H PRN nausea and 04/08/23 tablet vomiting 4 days #12 tabs phenazopyridine 200 mg tablet 200 mg PO Q8H PRN pain 6 doses #14 04/08/23 (Pyridium) tabs nitrofurantoin 100 mg PO BID 5 days #10 caps 05/07/23 monohydrate/macrocrystals 100 mg capsule ondansetron 4 mg disintegrating 4 mg PO Q6H PRN nausea and 05/07/23 tablet vomiting 5 days #20 tabs Allergies Allergy/AdvReac Type Severity Reaction Status Date / Time No Known Allergies Allergy Verified 08/30/22 12:19 [facility] Disclaimer: The information contained in this section may have been updated after the patient was seen, as this information can be updated by other users. Medical History (Updated 05/07/23 @ 10:48 by Abdoul Faust MD) ADH disorder History of narcotic addiction Hx of renal calculi Mood disorder Sleep disorder Surgical History (Updated 04/08/23 @ 08:49 by Elisabeth Jarvis RN) Hx of cholecystectomy Social History (Reviewed 04/08/23 @ 08:02 by Nawaf
[2023-05-07 08:36] LABS: Alanine Aminotransferase 18 U/L (12-78); Albumin Level 4.6 g/dl (3.5-5.0); Albumin/Globulin Ratio 1.3 (1.1-1.8); Alkaline Phosphatase 64 U/L (38-126); Aspartate Amino Transferase 26 U/L (14-36); Bilirubin,Total 0.7 mg/dl (0.2-1.3); Blood Urea Nitrogen 10 mg/dl (7-17); Calcium 9.6 mg/dl (8.4-10.2); Carbon Dioxide 24 mmol/L (22.0-30.0); Chloride 106 mmol/L (98-107); Creatinine Clearance Estimated 74 mL/min (50-200); Estimated Glomerular Filt Rate 67 ml/min (>60); GFR (African American) 81 ML/MIN (>60); Globulin 3.5 g/dL (1.3-3.2); Glucose 112 mg/dl (74-100); Lipase 46 U/L (23-300); Sodium 142 mmol/L (136-145); Total Protein,Serum 8.1 g/dl (6.3-8.2)
[2023-05-07 08:42] VITALS: BP 127/67; PULSE 71; O2SAT 99
[2023-05-07 08:45] LABS: HCG Qualitative, Serum Negative (Negative)
--- NOTE | 2023-05-07 08:54 | PC.NURSE ---
When asked pt advised she was still unable to provide a urine sample
[2023-05-07 09:08] LABS: Basophils # 0.1 K/mm3 (0-0.2); Basophils % 0.6 % (0.1-2.0); Eosinophils # 0.1 K/mm3 (0.0-0.4); Eosinophils % 1.3 % (0.1-12.0); Hematocrit 43.7 % (37.0-47.0); Hemoglobin 14.2 g/dL (12.2-16.2); Lymphocytes # 1.7 K/mm3 (0.7-4.5); Lymphocytes % 18.4 % (10-50); Mean Corpuscular HGB Conc 32.4 g/dL (31.8-35.4); Mean Corpuscular Hemoglobin 29.7 pg (27.0-31.2); Mean Corpuscular Volume 91.7 fl (81-99); Mean Platelet Volume 7.5 fl (7.4-10.4); Monocytes # 0.5 K/mm3 (0.1-1.0); Monocytes % 5.9 % (1.7-9.3); Neutrophils # 6.6 K/mm3 (1.8-7.8); Neutrophils % 73.9 % (37.0-80.0); Platelet Count 252 K/mm3 (142-424); Red Blood Count 4.77 M/mm3 (4.20-5.40); Red Cell Distribution Width 12.4 % (11.5-17.5)
--- NOTE | 2023-05-07 09:12 | PC.NURSE ---
talked with radiology, will be to get the pt
--- NOTE | 2023-05-07 09:54 | PC.NURSE ---
pt back from ct scan, pt still unable to give urine sample.
[2023-05-07 09:55] VITALS: BP 132/81; PULSE 74; O2SAT 100
--- NOTE | 2023-05-07 10:04 | PC.NURSE ---
urine specimen obtained
[2023-05-07 10:07] LABS: Microscopic, Urine URINE MICROSCOPIC (MICROSCOPIC)
[2023-05-07 10:16] LABS: Appearance,Urine CLEAR (Clear); Bilirubin,Urine Negative (Negative); Blood, Urine 1+ (Negative); Color,Urine YELLOW (Yellow); Glucose,Urine (UA) Negative (Negative); Ketones,Urine Negative (Negative); Leukocyte Esterase,Urine TRACE (Negative); Nitrate,Urine POSITIVE (Negative); PH,Urine 6.5 (5.0-8.5); Protein,Urine TRACE (Negative); Urobilinogen,Urine 0.2 EU/dl (0.2)
[2023-05-07 10:25] LABS: Bacteria,Urine 1+ /lpf; WBC,Urine 50-100 #/hpf (0-3)
[2023-05-07 10:49] VITALS: BP 112/78; PULSE 80; RESP 16; TEMP 36.9; O2SAT 98
== END 2023-05-07 10:59 | disposition home or self-care (01) ==
PROVIDERS: Emergency Provider Student in an Organized Health Care Education/Training Program
DX: R10.30 Lower abdominal pain, unspecified (principal); N39.0 Urinary tract infection, site not specified; R11.2 Nausea with vomiting, unspecified; R19.7 Diarrhea, unspecified; F17.210 Nicotine dependence, cigarettes, uncomplicated
CPT/HCPCS: 74177; 80053; 81001; 83690; 84703; 85025; 87086; 87088; 87186; 96361; 96374; 96375; 99285; J0131; J2405; Q9967

== ENCOUNTER 2025-06-06 06:06 | Emergency (ER) | payer MEDICAID, SELFPAY ==
[2025-06-06 06:09] VITALS: BP 132/82; PULSE 78; RESP 16; TEMP 36.8; O2SAT 97; BMI 22.6
--- OUTSIDE RECORDS SUMMARY | 2025-06-06 06:13 | XMS_ITS | Encounter Summary ---
Author Organization [facility] Address [address] [place] [address] Care Team Providers Care Bookkeeping Service Sales Agent Name Role Phone Drew Templeton FIELD MANAGER Primary Care Provider + Reason for Referral * Consultation (Routine) - Authorized Specialty Diagnoses / Procedures Referred By Contac t Referred To Contact Gastroenterology Diagnoses Nausea and vomiting, unspecified vomiting type Thi De La Cruz MD [address] [place] [address] [address] [place] [address] Phone: tel: fax: Referral ID Status Reason Start Date Expiration Date Visits Requested Visits Authorized [id number] Authorized Specialty Services Required 4 11/28/2025 1 1 Encounter Details Date Type Department Care Team (Late st Contact Info) Description 05/29/2024 [facility] [address] [place] [id number] Thi De La Cruz MD [address] [place] [address] [address] [place] [address] Nausea and vomiting, unspecified vomiting type (Primary Dx) Social History Tobacco Use Types Packs/Day Years Used Date Smoking Tobacco: Never Alcohol Use Standard Drinks/Week Comments No 0 (1 standard drink = 0.6 oz pur e alcohol) Comments Unknown Sex and Gender Information Value Date Recorded Sex Assigned at Not on file Legal Sex Female 6:22 PM EDT Gender Identity Not on file Sexual Orientation Not on file documented as of this encounter Plan of Treatment Scheduled Referrals Name Type Priority Associated Diagnoses Order Schedule Ambulatory referral to Gastroenterology Outpatient Referral Routine Nausea And Vomiting, Unspecified Vomiting Type Expected: 05/29/2024 (Approximate), Expires: 11/27/2025 documented as of this encounter Visit Diagnoses Diagnosis Nausea and vomiting, unspecified vomiting type- Primary documented in this encounter Care Teams Bookkeeping Service Sales Agent Relationship Specialty Start Date End Date Drew Templeton APRN [address] [place] [address] [address] [place] [address] PCP - General 12/27/20 documented as of this encounter
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
--- OUTSIDE RECORDS SUMMARY | 2025-06-06 06:13 | XMS_ITS | Clinical Summary ---
Author Organization [facility] Address [address] [place] [address] Care Team Providers Care Renal Nurse Name Role Phone Drew Templeton APRN Primary Care Provider + Allergies No known active allergies Medications No known medications Active Problems Problem Noted Date Diagnosed Date Borderline personality disorder 2022 Suicidal ideation 2022 Marijuana use 2022 Adjustment disorder 02/20/2022 Social History Tobacco Use Types Packs/Day Years Used Date Smoking Tobacco: Never Alcohol Use Standard Drinks/Week Comments No 0 (1 standard drink = 0.6 oz pur e alcohol) Comments Unknown Sex and Gender Information Value Date Recorded Sex Assigned at Not on file Legal Sex Female 6:22 PM EDT Gender Identity Not on file Sexual Orientation Not on file Last Filed Vital Signs Vital Sign Reading Time Taken Comments Blood Pressure 118/76 2022 6:11 AM EDT Pulse 79 2022 6:11 AM EDT Temperature 36.6 C (97.9 F) 2022 6:11 AM EDT Respiratory Rate 16 02/20/2022 2:31 PM EDT Oxygen Saturation 98% 2022 6:11 AM EDT Inhaled Oxygen Concentration - - Weight 63.6 kg (140 lb 4.5 oz) 02/20/2022 2:55 P M EDT Height 154.9 cm (5' 1 ) 02/20/2022 2:55 PM EDT Body Mass Index 26.51 02/20/2022 2:55 PM EDT Plan of Treatment Health Maintenance Due Date Last Done Comments [facility]-Depression Screening 1997 [facility]-/Child/Adol SDOH Screenings 1997 [facility]- SDOH Screenings 2015 [facility]-Adult SDOH Screenings 2015 [facility]-Pap Smear 2018 PST-NBKSS-90 Vaccine ( season) 2025 [facility]-Influenza Vaccine (#1) 04/16/202507/06, 04/23/2018, 06/20/2017, Additional history exists [facility]-DTaP,Tdap,and Td Vaccines (8 - Td or Tdap) 04/23/2028 04/23/2018, 05/09/2009, 04/13/2001, Additional history exists [facility]-Zoster Vaccines (1 of 2) 2047 04/24/2016, 04/13/2001 [facility]-Hepatitis B Vaccines Completed 998, 1997, 1997 [facility]-HIB Vaccines Completed 07/16/1998, 09/1997, 1997, Additional history exists [facility]-IPV Vaccines Completed 04/13/2001, , 1997, Additional history exists [facility]-Varicella Vaccines Completed 04/24/2016, 2000 HPV Vaccines Completed 10/22/2016, 04/2016, 04/24/2016 [facility]-Hepatitis A Vaccines Aged Out 12/14/2020, 04/2016 No longer eligible based on patient's age to complete this topic [facility]-Pneumococcal Vaccine: Pediatrics (0 to 5 Years) and At-Risk Patients (6 to 49 Years) Aged Out No longer eligible based on patient's age to complete this topic [facility]-Rotavirus Vaccines Aged Out No lo nger eligible based on patient's age to complete this topic Insurance AETNA [facility] MEDICAID Care Teams Renal Nurse Relationship Specialty Start Date End Date Drew Templeton APRN [address] [place] [address] [address] [place], [place] [id number] PCP - General 12/27/20
--- OUTSIDE RECORDS SUMMARY | 2025-06-06 06:13 | XMS_ITS | Clinical Summary ---
Author Organization [facility] Address [address] [place] [address] Phone Care Team Providers Care Key Person Name Role Phone Nonstaff, Referring Primary Care Provider Regina reid Allergies Active Allergy Reactions Criticality Noted Date Comments No Known Allergies 05/11/2013 Medications * This document contains information received from the source organization and may not represent a complete record from that organization. busPIRone (BUSPAR) 10 mg Oral TabletIndication s:Psychogenic vomiting with nausea Take 1 Tab by mouth 2 times daily. 60 Tab 2 6 Active Additional Information Patient not taking.Reported on 07/26/2023 DOK 100 mg Oral Capsule 1 Active Guanfacine 2 mg Oral Tablet 1 Active hydrOXYzine (VISTARIL) 50 mg Oral Capsule 1 Active ibuprofen (ADVIL;MOTRIN) 600 mg Oral Tablet 1 Active prazosin (MINIPRESS) 2 mg Oral Capsule 1 Active QUEtiapine (SEROQUEL) 100 mg Oral Tablet 1 Active naltrexone microspheres (VIVITROL) IM Suspension,Sust. Release Recon Inject 380 mg into the muscle every 28 days. Active sertraline (ZOLOFT) 100 mg Oral Tablet Take 100 mg by mouth daily. 1 Active Active Problems Patient Care Coordination No te Formatting of this note migh t be different from the original. Utilization audit completed by Mandi Mendez RN on 04/22/2022. Problem Noted Date Diagnosed Date Opioid abuse, in remission 12/13/2020 Anxiety 12/13/2020 Cocaine abuse in remission 06/07/2020 Substance or medication-rocio breann sleep disorder, insomnia type 06/07/2020 MDD (major depressive disord er), recurrent severe, without psychosis 04/30/2015 Overview (12/13/2020): Follows with psychiatry and therapy Elbow pain 07/30/2014 Overview (07/30/2014): 07-10-14: Possible occult radial head injury, but more likely contusion to the anterior aspect of the elbow. Return 3-4 weeks after PT. Anti-inflammatories. No brace at this time. Refrain from cheerleading, given note. Traumatic tear of ulnar collateral ligament of e lbow 05/26/2013 Overview (05/26/2013): 05-16-13: Grade-3 ulnar collateral ligament tear. Non-surgical management. Consultation with [facility] scanned. Acne 12/22/2011 Resolved Problems Problem Noted Date Diagnosed Date Resolved Date Suicide attempt by acetaminophen overdose 05/12/2015 06/07/2020 Suicide attempt by acetaminophen overdose 04/30/2015 06/07/2020 Depression 04/18/2015 06/07/2020 First known suicide attempt 04/16/2015 06/07/2020 Major depressive disorder, r ecurrent, severe without psychotic features 06/07/2020 Immunizations Immunization Administration Dates Next Due DTaP 04/13/2001, 8,1997,07/16,1997 Hepatitis B, Unspecified Formulation 1997, 1997,1997 HiB, Unspecified Formulation 07/16/1998, 1997,1997,05/11 IPV 04/13/2001, 8,1997,05/11 Influenza Nasal, Unspecified Formulation 04/24/2013,06/14/2012 Influenza Vaccine, Unspecifi ed Formulation 06/17/2010 MMR 04/13/2001,03/08/1998 Meningococcal Conjugate 12/22/2011 Tdap 05/09/2009 Varicella 04/13/2001 Surgical History Surgery Date Site/Laterality Comments MOUTH SURGERY LITHOTRIPSY Left Medical History Medical History Date Comments MDD (major depressive disorder), recurrent episo de, severe (HCC) Kidney stone Polysubstance abuse (HCC) Family History Medical History Relation Name Comments No Known Problems Father Hypertension Mother Stomach Cancer Paternal Grandmother Urolithiasis Sister Relation Name Status Comments Father Mother Paternal Grandmother Sister Social History Tobacco Use Types Packs/Day Years Used Date Smoking Tobacco: Former Cigarettes Smokeless Tobacco: Never Tobacco Cessation:Counseling Given: Not Answered Comments:VAPE Alcohol Use Standard Drinks/Week Comments Yes 1 (1 standard drink = 0.6 oz pur e alcohol) Sexually Active Control Partners Comments Not Currently Comments No Sex and Gender Information Value Date Recorded Sex Assigned at Not on file Legal Sex Female 3:33 AM EDT Gender Identity Not on file Sexual Orientation Not on file Last Filed Vital Signs Vital Sign Reading Time Taken Comments Blood Pressure 138/78 01/22/2025 8:55 PM EDT Pulse 89 01/22/2025 8:44 PM EDT Temperature 36.7 C (98 F) 01/22/2025 8:55 PM EDT Respiratory Rate 18 01/22/2025 8:44 PM EDT Oxygen Saturation 100% 01/22/2025 9:00 PM EDT Inhaled Oxygen Concentration - - Weight 49.4 kg (109 lb) 01/22/2025 8:55 PM EDT Height 154.9 cm (5' 1 ) 01/22/2025 8:55 PM EDT Body Mass Index 20.6 01/22/2025 8:55 PM EDT Plan of Treatment Health Maintenance Due Date Last Done Comments Annual Wellness Exam 12/13/2021 12/13/2020 Cervical Cancer Screening 12/14/2021 Pap Smear 12/14/2021 12/14/2018 COVID-19 Vaccine ( season) 2025 Influenza Vaccine (#1) 2025 9, 04/23/2018, 06/20/2017, Additional history exists DTaP/TDaP/Td (8 - Td or Tdap) 04/23/2028 04/23/2018, 05/09/2009, 04/13/2001, Additional history exists Hepatitis B Vaccine Completed 1997, 1997, 1997 Meningococcal B Vaccine Aged Out No l onger eligible based on patient's age to complete this topic Pneumococcal Vaccine 0-49 Aged Out No longer eligible based on patient's age to complete this topic Goals Goal Patient Goal Type Associated Problems Recent Progress Patient-Stated? Author Maintain a healthy diet, exercise regularly and maintain an ideal body weight General No Calista Burt MD Stay Tobacco Free Lifestyle No Calista Burt MD Advance Directives For more information, please contact: [phone] * Full Code (Latest Code Status on File) Date Activated Date Inactivated Comments 05/03/2015 1:52 PM 05/03/2015 11:11 PM * Full Code Date Activated Date Inactivated Comments 04/29/2015 10:47 PM 05/01/2015 2:10 PM * Full Code Date Activated Date Inactivated Comments 04/17/2015 6:48 PM 04/19/2015 10:13 PM * Full Code Date Activated Date Inactivated Comments 04/16/2015 9:59 PM 04/17/2015 6:48 PM Care Teams Key Person Relationship Specialty Start Date End Date Nonstaff, Referring PCP - General 01/04/24
--- OUTSIDE RECORDS SUMMARY | 2025-06-06 06:13 | XMS_ITS | Clinical Summary ---
Author Organization [facility] Address [address] [place] [address] Care Team Providers Care Aeronautical Products Sales Engineer Name Role Phone Pcp, No Primary Care Provider [phone] Source Comments This information has been disclosed to you from confidential records protectedfrom disclosure by state law. You shall make no further disclosure of thisinformation without the specific, written, and informed release of theindividual to whom it pertains, or as otherwise permitted by law. A generalauthorization for the release of medical or other information is not sufficientfor the purposes of therelease of HIV test results or diagnoses. [id number] Allergies No known active allergies Medications ondansetron (ZOFRAN-ODT) 4 MG disintegrating tablet Take 1 tablet (4 mg total) by mouth every 8 hours as needed for Nausea. 20 tablet 0 Active Social History Tobacco Use Types Packs/Day Years Used Date Smoking Tobacco: Never Assessed Comments Unknown Sex and Gender Information Value Date Recorded Sex Assigned at Not on file Legal Sex Female 7:32 PM EST Gender Identity Not on file Sexual Orientation Not on file Last Filed Vital Signs Vital Sign Reading Time Taken Comments Blood Pressure 142/85 10/29/2019 3:28 AM EDT Pulse 98 10/29/2019 3:28 AM EDT Temperature 36.7 C (98 F) 10/29/2019 3:27 AM EDT Respiratory Rate 16 10/29/2019 3:28 AM EDT Oxygen Saturation 99% 10/29/2019 3:28 AM EDT Inhaled Oxygen Concentration 99% 10/29/2019 3 :28 AM EDT Weight - - Height - - Body Mass Index - - Plan of Treatment Not on file [place] [address] [employer] [facility] Care Teams Aeronautical Products Sales Engineer Relationship Specialty Start Date End Date Pcp, No No Address PCP - General Pediatrics 10/29/19
[2025-06-06 06:15] VITALS: PULSE 86; O2SAT 99
--- NOTE | 2025-06-06 06:28 | HMH.EDGENADL ---
Discharge Plan Disposition Patient Disposition: Home, Self-Care Prescriptions Prescriptions: No Action Nexplanon 68 mg implant 1 implant subdermal nitrofurantoin monohyd/m-cryst [Macrobid] 100 mg capsule 100 mg PO BID 10 Days Qty: 20 2RF Rx Instructions: must administer with a meal/food Referrals Follow up/Referrals: Provider,Referral, [Primary Care Provider, Medical] - See instructions Activity Restrictions/Add. Instructions Additional Instructions/Restrictions: Please follow-up with your primary care provider. Please return to the emergency department if you develop any new or worsening symptoms or become concerned for your health. Clinical Impressions Clinical Impression: URI (upper respiratory infection) Stand Alone Forms Stand Alone Forms: Work/School Release Instructions Patient Instructions: Cough Print Language Print Language: Romanian Discharge ED Provider: Yemi Mcclellan General Adult HPI General Chief complaint: Cough Stated complaint: sore throat,,chest pain w/ cough,congestion Time Seen by Provider: 06/06/25 06:20 Mode of Arrival: Ambulatory Source of Information: Patient Description of Symptoms (Recalled from ER Triage Doc. by RN): Pt presents to ER with a cough/SOB that started yesterday. Pt denies any hemoptysis, n/v. 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 History of Present Illness HPI narrative: 30-year-old female without significant past medical history presents for viral symptoms. She reports that she has had nonproductive cough and sore throat starting yesterday. She sometimes has pain in her chest when she coughs. She denies any fever at home. Related Data Home Medications ?Medication ?Instructions ?Recorded ?Confirmed etonogestrel 68 mg subdermal 1 implant subdermal 09/13/23 09/13/23 implant (Nexplanon) Previous Rx's ?Medication ?Instructions ?Recorded nitrofurantoin 100 mg PO BID 10 days #20 caps 09/13/23 monohydrate/macrocrystals 100 mg capsule (Macrobid) Allergies Allergy/AdvReac Type Severity Reaction Status Date / Time No Known Allergies Allergy Verified 09/13/23 14:25 [facility] Disclaimer: The information contained in this section may have been updated after the patient was seen, as this information can be updated by other users. Medical History ADH disorder History of narcotic addiction Hx of renal calculi Mood disorder Sleep disorder Surgical History Hx of cholecystectomy Family History (Updated 09/13/23 @ 14:27 by PILY Dasilva) Other No significant family history Social History Smoking Status: Current every day smoker tobacco type: cigarettes packs per day: 1 alcohol intake: never substance use type: marijuana current occupational status: other Travel in the last 8 weeks?: None housing: house Have you lived/traveled outside US in past 30 days?: No Contact w/someone who lives/traveled outside US past 30 days?: No Exposure to someone with infectious disease in past 14 days?: No Do you have a fever (greater than 100.4 F or 38 C)?: No Have you tested positive for COVID-19?: No Exposed to someone with COVID-19 in past 14 days?: No Do you have a sore throat?: Yes Do you have a cough?: Yes Do you have any weakness?: No Do you have any diarrhea?: No Are you experiencing any unusual bleeding?: No Do you have any muscle aches/pain?: No Do you have any abdominal pain?: No Are you experiencing loss of taste or smell?: No Other Medical History Have you received the Flu Vaccine for this season: Yes Have you received the Pneumonia Vaccine: No ROS Obtained: Yes All systems reviewed & no additional complaints except as documented Physical Exam General General appearance: alert and in no apparent distress Head Head exam: atraumatic and normocephalic Eye Eye exam: Present normal appearance, PERRL and EOMI ENT ENT exam: Present normal external ear exam and other (Mild posterior oropharyngeal erythema without tonsillar exudate or swelling) Neck Neck exam: Present normal inspection and full ROM; Absent lymphadenopathy Chest Chest inspection: Present normal inspection and symmetric chest wall rise; Absent tenderness Respiratory Respiratory exam: Present normal lung sounds bilaterally; Absent respiratory distress Cardiovascular Cardiovascular exam: Present regular rate and normal rhythm Abdominal Exam Abdominal exam: Present soft; Absent distention, tenderness or guarding Extremities Exam Extremities exam: Present normal inspection; Absent edema or joint swelling Back Exam Back exam: Present normal inspection; Absent tenderness Neurological Exam Neurological exam: Present alert and oriented X3; Absent motor sensory deficit Psychiatric Psychiatric exam: Present normal affect and normal mood Skin Skin exam: Present warm, dry and normal color Lymphatic Lymphatic Findings: no adenopathy Medical Decision Making Medical Records Medical records reviewed: Yes I reviewed the patient's medical records. Screening: Per USPSTF and CDC recommendations, given the prevalence of disease in our region, it is our hospital?s policy to screen for HIV and viral Hepatitis for all patients aged 18 and over and those with ongoing risk factors. Juarez Inquiry Pt receiving controlled substance: No Juarez was queried for this patient: No Vital Signs: 06/06/25 06:09 06/06/25 06:15 06/06/25 06:30 Temperature 98.2 F Temperature Source Oral Pulse Rate 86 79 Pulse Rate [Left Radial] 78 Respiratory Rate 16 Blood Pressure Blood Pressure [Right Arm] 132/82 Blood Pressure Mean Blood Pressure Mean [Right Arm] 98 Blood Pressure Source [Right Arm] Automatic Cuff Blood Pressure Position Blood Pressure Position [Right Arm] Sitting 02 Sat by Pulse Oximetry 97 99 99 Oxygen Delivery Method Room Air 06/06/25 06:30 06/06/25 06:49 Temperature 98.2 F Temperature Source Pulse Rate 79 Pulse Rate [Left Radial] Respiratory Rate 16 Blood Pressure 141/82 H 141/85 H Blood Pressure [Right Arm] Blood Pressure Mean 98 Blood Pressure Mean [Right Arm] Blood Pressure Source [Right Arm] Blood Pressure Position Sitting Blood Pressure Position [Right Arm] 02 Sat by Pulse Oximetry Oxygen Delivery Method Room Air Lab Data Lab results reviewed: Yes I reviewed the patient's lab results. Orders (Tests/Meds): ED MEDICATIONS Discontinued Medications Generic Name Dose Route Start Last Admin Trade Name Carlos PRN Reason Stop Dose Admin Lidocaine HCl 15 ml 06/06/25 06:37 06/06/25 06:42 Lidocaine 2% Viscous Blanca 15ml Udc PO 06/06/25 06:38 15 ml ONCE ONE Administration Medical Decision Narrative: 30-year-old female without significant past medical history presents for 1 day of sore throat, nonproductive cough and some intermittent chest pain with coughing. History was obtained via interactive discussion with patient. On arrival, patient is [afebrile, hemodynamically stable, satting appropriately, alert, oriented x4, GCS 15], moving all extremities spontaneously. Full physical exam performed and significant for mild posterior oropharyngeal erythema without exudate or swelling. Lungs clear bilaterally. No lymphadenopathy. Differential includes but is not limited to URI, pneumonia, strep throat. Physical exam is not consistent with strep throat. Centor score of 0. No significant concern for bacterial etiology at this time. Considered obtaining x-ray but given clear lungs and normal vital signs I do not think it is indicated at this time. I offered patient a GI cocktail for her symptoms. Patient became extremely upset that we did not give her antibiotics, steroids or pain meds. Procedures Risk/Benefits of Procedure(s) Were Explained: Yes Critical Care Critical Care Time Critical Care Time: No
[2025-06-06 06:30] VITALS: BP 141/82; PULSE 79; O2SAT 99
[2025-06-06] MEDS: LIDOCAINE 2% VISCOUS SOL 15ML UDC 15 ML PO (06:42)
[2025-06-06 06:49] VITALS: BP 141/85; PULSE 79; RESP 16; TEMP 36.8; O2SAT 99
== END 2025-06-06 06:51 | disposition home or self-care (01) ==
PROVIDERS: Emergency Provider Emergency Medicine
DX: R07.0 Pain in throat (principal); J06.9 Acute upper respiratory infection, unspecified
CPT/HCPCS: 99283